=== PATIENT | male | born 2000 | race Caucasian/White ===

== ENCOUNTER 2020-12-25 17:46 | Emergency (ER) | payer OTHER ==
[~2020-12-25] VITALS: Ht 190.5 cm; Wt 87.0 kg
[2020-12-25 17:48] VITALS: BP 127/73
[2020-12-25] MEDS ORDERED: LIDOCAINE 1% INJ 20 ML 20 ML VIAL ONE (17:51)
[2020-12-25] MEDS ORDERED: CEPH500T PO (18:11)
--- NOTE | 2020-12-25 18:12 | ED Fall/Injury ---
General Chief Complaint: Laceration Stated Complaint: LT INDEX AND MID FINGER LAC Nursing Triage Note: Patient reports he was cutting up meat at his place of employment when his knife slipped and he cut the tip of his left first finger and his middle finger. 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 Injury occurred just prior to ED arrival. Bleeding is controlled. Tetanus is out of date. No other symptoms or complaints Occurred: just prior to arrival Severity: mild Injuries/Pain Location: upper extremity Context: other Loss of Consciousness: unsure Modifying Factors: Improves With Other Associated Symptoms (Fall): Other Allergies and Home Medications Allergies Coded Allergies: No Known Drug Allergies (Unverified , 12/25/20) Patient Home Medication List Home Medication List Reviewed: Yes Review of Systems Review of Systems Constitutional: see HPI Ears, Nose, Mouth, Throat: see HPI Cardiovascular: see HPI Gastrointestinal: see HPI Genitourinary: see HPI Musculoskeletal: see HPI Past Rdxfgpo-Hlbops-Srvuqy Hx Past Med/Social Hx: Reviewed Nursing Past Med/Soc Hx Patient Social History Recent Infectious Disease Expo: No Physical Exam Vital Signs Vital Signs - First Documented 12/25/20 17:48 Temp 36.6 Pulse 64 Resp 18 B/P (MAP) 127/73 (91) Pulse Ox 94 O2 Delivery Room Air Capillary Refill : Less Than 3 Seconds Height, Weight, BMI Height: '" Weight: lbs. oz. kg; 23.00 BMI Method: General Appearance: WD/WN Extremities: other (0.5 x 1 cm full-thickness skin avulsion/DEFECT to medial aspect of left index finger pad. Active bleeding. 0.25 x 0.05 cm partial skin avulsion to middle finger with overlying skin intact bleeding controlled) Progress/Results/Core Measures Results/Orders My Orders Orders - WOLF RYAN DO Lidocaine 1% Inj 20 Ml (Xylocaine 1% Inj (12/25/20 17:51) Vital Signs/I&O 12/25/20 17:48 Temp 36.6 Pulse 64 Resp 18 B/P (MAP) 127/73 (91) Pulse Ox 94 O2 Delivery Room Air Blood Pressure Mean: 91 Departure Communication (Admissions) Hemostat cellulose gauze used in conjunction with tube gauze to bandage finger. Tetanus updated. Recommend watchful waiting and PCP follow-up. Return precautions reviewed. Patient verbalizes understanding agreement discharge instructions prior to departure. Impression Primary Impression: Avulsion of skin of finger without complication Disposition: HOME, SELF-CARE Condition: Stable Departure-Patient Inst. Decision time for Depature: 18:10 Referrals: NO,LOCAL PHYSICIAN (PCP/Family) Primary Care Physician Patient Instructions: SKIN AVULSION Add. Discharge Instructions: Please keep wound clean covered and dry. Take Tylenol as needed for pain and complete 5-day course of antibiotics. Wound may take up to 3 weeks to heal by secondary intention (SCARRING). Follow-up with PCP or work comp doctor. Return to the ED if signs of infection. All discharge instructions reviewed with patient and/or family. Voiced understanding. Scripts Cephalexin (Cephalexin) 500 Mg Tablet 500 MG PO BID, #10 TAB Prov: WOLF RYAN DO 12/25/20 WOLF RYAN DO Dec 25, 2020 18:12
[2020-12-25] MEDS ORDERED: TETANUS,DIPTH,PERTUSS P/F (BOOSTRIX) 0.5 ML VIAL IM ONE (18:15)
== END 2020-12-25 18:30 | disposition home or self-care (01) ==
LOC: ER FS 17:48
DX: S61.211A Laceration without foreign body of left index finger without damage to nail, initial encounter (principal); S61.213A Laceration without foreign body of left middle finger without damage to nail, initial encounter; W26.0XXA Contact with knife, initial encounter; Y92.59 Other trade areas as the place of occurrence of the external cause; Y93.G3 Activity, cooking and baking; Y99.0 Civilian activity done for income or pay
CPT/HCPCS: 90715

== ENCOUNTER 2021-06-27 13:06 | Emergency (ER) | payer SELFPAY ==
[~2021-06-27] VITALS: Ht 190.5 cm; Wt 83.0 kg
[~2021-06-27 13:06] MED LIST: CEPH500T PO
--- NOTE | 2021-06-27 13:41 | ED Integumentary General ---
General Chief Complaint: Skin/Wound Problems Stated Complaint: CYST Nursing Triage Note: Patient reports he has had an abscess on his right buttock for 5-6 months, states he took medication for the abscess one month ago, but now the swelling is worse. Source: patient History of Present Illness Date Seen by Provider: Jun 27, 2021 Time Seen by Provider: 13:08 Initial Comments 21-year-old male presenting with complaints of cyst or abscess to his right butt cheek for the last 5 to 6 months. He was seen approximately a month ago according to the patient and at that time was placed on antibiotics. That seemed to help with the swelling but today it started draining blood. He had been referred to a clinic but states he was never able to reach anyone or get an appointment set up. He states he has mild aching in the area but no severe pain. He has had no fever or chills. Location: genitalia (Right butt cheek towards the cleft) Possible Cause: no cause identified Associated Symptoms: No blisters; edema; No fever, No flushing, No headache, No hives, No jaundice, No malaise, No nasal congestion, No numbness, No pallor, No paresthesia, No petechiae, No rash, No sore throat Allergies and Home Medications Allergies Coded Allergies: No Known Drug Allergies (Unverified , 12/25/20) Patient Home Medication List Home Medication List Reviewed: Yes Cephalexin (Cephalexin) 500 Mg Tablet, 500 MG PO BID Prescribed by: WOLF RYAN on 12/25/20 181 Sulfamethoxazole/Trimethoprim (Bactrim Ds Tablet) 1 Each Tablet, 1 EACH PO BID Prescribed by: KEVIN CARROLL on 06/27/21 1342 Review of Systems Review of Systems Constitutional: No chills, No fever EENTM: no symptoms reported Respiratory: no symptoms reported Cardiovascular: no symptoms reported Gastrointestinal: no symptoms reported Genitourinary: no symptoms reported Musculoskeletal: no symptoms reported Skin: see HPI Psychiatric/Neurological: Denies Numbness, Denies Paresthesia Past Wvjdsvo-Yluxjs-Lhydbl Hx Patient Social History Tobacco Use?: Yes Tobacco type used: Cigarettes Smoking Status: Current Everyday Smoker Seasonal Allergies Seasonal Allergies: No Past Medical History Surgeries: No Respiratory: No Cardiac: No Neurological: No Genitourinary: No Gastrointestinal: No Musculoskeletal: No Endocrine: No HEENT: No Cancer: No Psychosocial: No Integumentary: No Physical Exam Vital Signs Vital Signs - First Documented 06/27/21 13:15 Temp 37.1 Pulse 68 Resp 16 B/P (MAP) 126/71 (89) Pulse Ox 99 O2 Delivery Room Air Capillary Refill : Less Than 3 Seconds General Appearance: WD/WN, no apparent distress Cardiovascular: normal peripheral pulses, regular rate, rhythm Respiratory: chest non-tender, lungs clear, normal breath sounds Gastrointestinal: normal bowel sounds, non tender, soft, no pulsatile mass Extremities: normal range of motion, non-tender, normal capillary refill Neurologic/Psychiatric: alert, oriented x 3 Skin: warm/dry Skin Problem Location: other (right butt cheek towards his cleft) Skin Problem Character: abscess, drainage, erythema, swelling, tenderness, warm Progress/Results/Core Measures Results/Orders My Orders Orders - KEVIN CARROLL MD Wound Culture (06/27/21 13:34) Vital Signs/I&O 06/27/21 06/27/21 13:15 13:43 Temp 37.1 37.1 Pulse 68 68 Resp 16 16 B/P (MAP) 126/71 (89) 126/71 Pulse Ox 99 99 O2 Delivery Room Air Room Air Blood Pressure Mean: 89 Progress Progress Note : Progress Note During the physical exam just with light pressure he had a large amount of purulent and serosanguineous drainage from the abscess or cyst located on his right buttock towards his cleft. Since the drainage was coming through an already open area no incision and drainage procedure was needed. He did have a lot of hair in the area so it is possible it may have been an ingrown hair or a blocked sweat gland or cyst. A wound culture was obtained of the drainage that was coming out. We will start him on Bactrim DS and give him phone numbers for the surgery clinic and [place]. As he states that he had difficulty trying to get followed up with his prior referral will give numbers for all 3 surgeons as well as the [facility] clinic. Advised that he may need surgical excision of an abscess or cyst in that area to prevent this from discontinuing t o recur. Departure Impression Primary Impression: Abscess of buttock, right Disposition: 01 HOME, SELF-CARE Condition: Stable Departure-Patient Inst. Decision time for Depature: 13:42 Referrals: SILVIANO RIVERA BRETT D DO KIDO, TAKAAKI MD NO,LOCAL PHYSICIAN (PCP) Primary Care Physician [facility] Patient Instructions: Boil, Adult ED Add. Discharge Instructions: The cyst or abscess you have on the inside of your right buttock opened and drained on it's own. The culture of the drainage will take 3-5 days to come back from the lab. In the meantime you may have some drainage but it should be decreased. Take the antibiotics to help treat for infection. Call Dr. Rivera the surgeon commercial drone software developer in [place] to set up an appointment to be seen as you will need a surgical procedure to cut out the cyst or abscess to prevent it from recurring Other surgeons in [place] are Dr. eNlson and Dr. Sesay that you could check with if you have trouble getting an appointment with Dr. Rivera. You may call [facility] to get established with a local primary care provider to help with managing the cyst or abscess area as well. To set up an appointment with them and establish care you would need to call [phone] All discharge instructions reviewed with patient and/or family. Voiced under standing. Scripts Sulfamethoxazole/Trimethoprim (Bactrim Ds Tablet) 1 Each Tablet 1 EACH PO BID for 10 Days, #20 TAB 0 Refills Prov: KEVIN CARROLL MD 06/27/21 Images Torso/Trunk 1 - Tenderness (Mild tenderness to swollen area with drainage on the right butt cheek in the cleft. Purulent and serosanguineous drainage is easily expressed from an opening in this area.) KEVIN CARROLL MD Jun 27, 2021 13:41
[2021-06-27] MEDS ORDERED: SULF1TAB38 PO (13:42)
[2021-06-27 13:43] VITALS: BP 126/71
== END 2021-06-27 13:44 | disposition home or self-care (01) ==
LOC: EDUNIT# 13:06 → ER FS 13:08
DX: L02.31 Cutaneous abscess of buttock (principal); F17.210 Nicotine dependence, cigarettes, uncomplicated
CPT/HCPCS: 87070; 87205; 99282